=== PATIENT | female | born 1945 | race Caucasian/White ===

== ENCOUNTER → 2021-01-17 | Outpatient (CLI) | payer MEDICARE, SELFPAY ==
[~2021-01-17] MED LIST: ALBUTEROL2.5 MG/3 M INH; BENTYL 20MG TAB20 MG PO; ZOFRAN4 MG PO
== END ==
LOC: MRI 12-27 10:30 → MAMO 12-27 11:30
DX: Z12.31 Encounter for screening mammogram for malignant neoplasm of breast (principal); M54.2 Cervicalgia; M47.812 Spondylosis without myelopathy or radiculopathy, cervical region; M25.78 Osteophyte, vertebrae; M48.02 Spinal stenosis, cervical region
CPT/HCPCS: 72141; 77063; 77067

== ENCOUNTER → 2022-01-19 | Outpatient (CLI) | payer MEDICARE | LOC: MAMO 10:57 | DX: Z12.31 Encounter for screening mammogram for malignant neoplasm of breast (principal); E11.9 Type 2 diabetes mellitus without complications; R91.1 Solitary pulmonary nodule; D50.9 Iron deficiency anemia, unspecified | CPT/HCPCS: 36415; 77063; 77067; 82565 ==

== ENCOUNTER → 2022-01-21 | Outpatient (CLI) | payer MEDICARE | LOC: CT 07:37 | DX: H60.391 Other infective otitis externa, right ear (principal) | CPT/HCPCS: 70481; Q9967 ==

== ENCOUNTER → 2022-04-16 | Outpatient (CLI) | payer MEDICARE ==
[2022-04-16 09:26] LABS: HEMOGLOBIN 14.2 gm/dl (12.3-15.3); RED BLOOD COUNT 4.62 M/UL (4.00-5.10); WHITE BLOOD COUNT 6.4 K/UL (4.5-11.0)
[2022-04-16 09:45] LABS: BUN/CREATININE RATIO 26 (0-10)
== END ==
LOC: ECHO 08:47
PROVIDERS: Internal Medicine
DX: I11.0 Hypertensive heart disease with heart failure (principal); I50.32 Chronic diastolic (congestive) heart failure; R53.83 Other fatigue; R30.0 Dysuria; R00.2 Palpitations
CPT/HCPCS: ECHO; 36415; 71046; 80053; 80061; 83880; 84443; 85027; 93306